=== PATIENT | female | born 1955 | race Caucasian/White ===

== ENCOUNTER → 2025-06-08 11:28 | Outpatient (REF) | payer OTHER, SELFPAY | LOC: RAD 11:28 | PROVIDERS: ATTENDING PHYSICIAN Nurse Practitioner | DX: E78.2 Mixed hyperlipidemia (principal); I10 Essential (primary) hypertension; C43.9 Malignant melanoma of skin, unspecified; I51.89 Other ill-defined heart diseases | CPT/HCPCS: 71260; 74177; Q9967 ==